=== PATIENT | male | born 1985 | race Hispanic/Latino ===

== ENCOUNTER 2018-02-13 09:05 | Inpatient (IN) | payer BC ==
[2018-02-13] MEDS ORDERED: NA CHLORIDE 0.9% 1,000 ML ONE (10:12)
[2018-02-13] MEDS ORDERED: METRONIDAZOLE 500mg IVPB 500 MG/100 ML BAG IV ONE (10:12)
[2018-02-13] MEDS ORDERED: ONDANSETRON 4 MG/2 ML VIAL ONE (10:12)
[2018-02-13] MEDS ORDERED: Levofloxacin 750mg IV 750 MG/150 ML BAG IV ONE (10:12)
[2018-02-13] MEDS ORDERED: MORPHINE 4 MG/ML SYR ONE (10:12)
[2018-02-13 10:42] LABS: Absolute Lymphocytes (CBC) 1.7 K/uL (0.7-4.9); Absolute Monocytes 1.6 K/uL (0.1-1.3); Absolute Neutrophil 10.9 K/uL (1.8-8.0); Basophils % 0.3 % (0-1.3); Eosinophils % 0.1 % (0-4.4); Hematocrit 40.8 % (39.6-49.0); Lymphocytes % 11.9 % (15.3-44.8); MPV 7.6 fL (7.6-11.3); Monocytes % 11.5 % (3.3-12.3); RBC Red Blood Cell Count 4.69 M/uL (4.33-5.43)
[2018-02-13 11:01] LABS: ALT/SGPT 83 U/L (12-78); AST/SGOT 33 U/L (15-37); Albumin 3.4 g/dL (3.4-5.0); Alkaline Phosphatase 117 U/L (45-117); BUN Blood Urea Nitrogen 9 mg/dL (7-18); Bicarbonate 32 mmol/L (21-32); Bilirubin Direct 0.2 mg/dL (0-0.2); Bilirubin Total 0.5 mg/dL (0.2-1.0); Glucose Level 116 mg/dL (74-106); Lipase 72 U/L (73-393); Potassium 3.4 mmol/L (3.5-5.1); Protein, Total 8.5 g/dL (6.4-8.2); Sodium Level 135 mmol/L (136-145)
[2018-02-13 11:13] LABS: Urine Blood 1+ (NEG); Urine Glucose NEGATIVE (NEG); Urine Protein 1+ (NEG); Urine Specific Gravity >1.030 (1.005-1.030); Urine pH 5.5 (5.0-7.0)
[2018-02-13] MEDS ORDERED: NS KCL 20MEQ 1,000 ML IV ONE (12:16)
--- NOTE | 2018-02-13 12:34 | EDPHYS ---
Physician Documentation [facility] Name: Jalen Venegas Age: 32 yrs Sex: Male : 1985 Arrival Date: 02/13/2018 Time: 09:08 Bed 14 Private MD: ED Physician Fabian Daugherty HPI: 02/13 09:47 This 32 yrs old Male presents to ER via Ambulatory with complaints of anthony Abdominal Pain. 09:47 The patient presents with abdominal pain in the lower abdomen, in the left lower anthony quadrant. Onset: The symptoms/episode began/occurred 7 day(s) ago. The symptoms do not radiate. Associated signs and symptoms: none. The symptoms are described as crampy, steady. Modifying factors: The symptoms are alleviated by nothing, the symptoms are aggravated by jumping, movement, touching the area, walking. Severity of pain: At its worst the pain was moderate in the emergency department the pain is unchanged. Historical: - Allergies: 09:22 No Known Allergies; aa5 - Home Meds: :22 None [Active]; aa5 - PMHx: 09:22 Diverticulitis; aa5 - PSHx: 09:22 None; aa5 - Immunization history:: Adult Immunizations unknown. - Social history:: Smoking status: Patient/guardian denies using tobacco. - Ebola Screening: : No symptoms or risks identified at this time. - Family history:: not pertinent. ROS: 09:47 Constitutional: Negative for fever, chills, and weight loss, Eyes: Negative for injury, anthony pain, redness, and discharge, ENT: Negative for injury, pain, and discharge, Neck: Negative for injury, pain, and swelling, Cardiovascular: Negative for chest pain, palpitations, and edema, Respiratory: Negative for shortness of breath, cough, wheezing, and pleuritic chest pain, Back: Negative for injury and pain, : Negative for injury, bleeding, discharge, and swelling, MS/Extremity: Negative for injury and deformity, Skin: Negative for injury, rash, and discoloration, Neuro: Negative for headache, weakness, numbness, tingling, and seizure, Psych: Negative for depression, anxiety, suicide ideation, homicidal ideation, and hallucinations, Allergy/Immunology: Negative for hives, rash, and allergies, Endocrine: Negative for neck swelling, polydipsia, polyuria, polyphagia, and marked weight changes, Hematologic/Lymphatic: Negative for swollen nodes, abnormal bleeding, and unusual bruising. 09:47 Abdomen/GI: Positive for abdominal pain, of the left upper quadrant, right lower quadrant and left lower quadrant. Exam: 09:47 Constitutional: This is a well developed, well nourished patient who is awake, alert, anthony and in no acute distress. Head/Face: Normocephalic, atraumatic. Eyes: Pupils equal round and reactive to light, extra-ocular motions intact. Lids and lashes normal. Conjunctiva and sclera are non-icteric and not injected. Cornea within normal limits. Periorbital areas with no swelling, redness, or edema. ENT: Nares patent. No nasal discharge, no septal abnormalities noted. Tympanic membranes are normal and external auditory canals are clear. Oropharynx with no redness, swelling, or masses, exudates, or evidence of obstruction, uvula midline. Mucous membranes moist. Neck: Trachea midline, no thyromegaly or masses palpated, and no cervical lymphadenopathy. Supple, full range of motion without nuchal rigidity, or vertebral point tenderness. No Meningismus. Chest/axilla: Normal chest wall appearance and motion. Nontender with no deformity. No lesions are appreciated. Cardiovascular: Regular rate and rhythm with a normal S1 and S2. No gallops, murmurs, or rubs. Normal PMI, no JVD. No pulse deficits. Respiratory: Lungs have equal breath sounds bilaterally, clear to auscultation and percussion. No rales, rhonchi or wheezes noted. No increased work of breathing, no retractions or nasal flaring. Back: No spinal tenderness. No costovertebral tenderness. Full range of motion. Male : Normal genitalia with no discharge or lesions. Skin: Warm, dry with normal turgor. Normal color with no rashes, no lesions, and no evidence of cellulitis. MS/ Extremity: Pulses equal, no cyanosis. Neurovascular intact. Full, normal range of motion. Neuro: Awake and alert, GCS 15, oriented to person, place, time, and situation. Cranial nerves II-XII grossly intact. Motor strength 5/5 in all extremities. Sensory grossly intact. Cerebellar exam normal. Normal gait. Psych: Awake, alert, with orientation to person, place and time. Behavior, mood, and affect are within normal limits. 09:47 Abdomen/GI: Inspection: distension, Bowel sounds: normal, Palpation: moderate abdominal tenderness, in the suprapubic area, left upper quadrant and left lower quadrant. Vital Signs: 09:22 BP 132 / 82; Pulse 93; Resp 18 S; Temp 99.8(O); Pulse Ox 97% on R/A; Weight 91.17 kg aa5 (R); Height 5 ft. 9 in. (175.26 cm) (R); Pain 7/10; 10:00 BP 131 / 90; Pulse 90; Resp 14; Pulse Ox 97% ; bp 12:00 BP 122 / 78; Pulse 88; Resp 14; Pulse Ox 95% ; bp 14:00 BP 124 / 79; Pulse 91; Resp 16; Pulse Ox 97% ; bp 09:22 Body Mass Index 29.68 (91.17 kg, 175.26 cm) aa5 MDM: 09:29 Patient medically screened. [facility] 09:50 Data reviewed: vital signs, nurses notes, lab test result(s), radiologic studies, CT anthony scan. 02/13 09:46 Order name: Basic Metabolic Panel; Complete Time: 11:26 [facility] 02/13 09:46 Order name: CBC with Diff; Complete Time: 10:53 [facility] 02/13 09:46 Order name: Creatinine for Radiology; Complete Time: 11:00 [facility] 02/13 09:46 Order name: Hepatic Function; Complete Time: 11:26 [facility] 02/13 09:46 Order name: Lipase; Complete Time: 11:26 [facility] 02/13 10:25 Order name: Urine Dipstick--Ancillary (enter results); Complete Time: 11:26 02/13 09:51 Order name: CT Abd/Pelvis - W/Contrast [facility] 02/13 09:46 Order name: IV Saline Lock; Complete Time: 10:23 [facility] 02/13 09:46 Order name: Labs collected and sent; Complete Time: 10:23 [facility] 02/13 09:46 Order name: Urine Dipstick-Ancillary (obtain specimen); Complete Time: 10:22 [facility] Administered Medications: 10:15 Drug: NS 0.9% 1000 ml Route: IV; Rate: 1 bolus; Site: right antecubital; bp 12:01 Follow up: IV Status: Completed infusion; IV Intake: 1000ml bp 10:15 Drug: morphine 4 mg Route: IVP; Site: right antecubital; bp 11:59 Follow up: Response: Pain is decreased bp 10:15 Drug: Zofran 4 mg Route: IVP; Site: right antecubital; bp 12:01 Follow up: Response: Nausea is decreased bp 10:15 Drug: Flagyl 500 mg Volume: 100 ml; Route: IVPB; Rate: 200 ml/hr; Infused Over: 30 bp mins; Site: right antecubital; 10:45 Follow up: IV Status: Completed infusion; IV Intake: 100ml bp 11:15 Drug: levofloxacin 750 mg Volume: 150 ml; Route: IVPB; Infused Over: 90 mins; Site: bp right forearm; 12:15 Follow up: IV Status: Completed infusion; IV Intake: 200ml bp 12:05 Drug: NS 0.9% with KCl 20 mEq/L 1000 ml Route: IV; Rate: 125 ml/hr; Site: right bp antecubital; 14:28 Follow up: IV Status: Infusion continued upon admission bp 13:00 Drug: Rocephin 2 grams Route: IV; Rate: per protocol; Site: right antecubital; bp 14:29 Follow up: IV Status: Completed infusion; IV Intake: 100ml bp Disposition: 18 12:34 Hospitalization ordered by Cooper Vaz for Inpatient Admission. Preliminary diagnosis are Abdominal tenderness, Diverticulitis of large intestine with perforation and abscess - no abscess seen, Elevated white blood cell count, Hypokalemia, Fever, unspecified. - Bed requested for Telemetry/MedSurg (Inpatient). - Status is Inpatient Admission. bp - Condition is Stable. - Problem is new. - Symptoms are unchanged. UTI on Admission? No Signatures: Dispatcher [employer] EDLA Fabian Daugherty MD MD cha Calderon, Audri RN RN aa5 Miranda Jose RN RN df Peltier, Brian, RN RN bp Corrections: (The following items were deleted from the chart) 12:34 12:34 Hospitalization Ordered by Cooper Vaz MD for Inpatient Admission. Preliminary anthony diagnosis is Abdominal tenderness; Diverticulitis of large intestine with perforation and abscess - no abscess seen; Elevated white blood cell count; Hypokalemia. Bed requested for Telemetry/MedSurg (Inpatient). Status is Inpatient Admission. Condition is Stable. Problem is new. Symptoms are unchanged. UTI on Admission? No. anthony 13:41 12:34 02/13/2018 12:34 Hospitalization Ordered by Cooper Vaz MD for Inpatient df Admission. Preliminary diagnosis is Abdominal tenderness; Diverticulitis of large intestine with perforation and abscess - no abscess seen; Elevated white blood cell count; Hypokalemia; Fever, unspecified. Bed requested for Telemetry/MedSurg (Inpatient). Status is Inpatient Admission. Condition is Stable. Problem is new. Symptoms are unchanged. UTI on Admission? No. anthony 15:12 13:41 02/13/2018 12:34 Hospitalization Ordered by Cooper Vaz MD for Inpatient bp Admission. Preliminary diagnosis is Abdominal tenderness; Diverticulitis of large intestine with perforation and abscess - no abscess seen; Elevated white blood cell count; Hypokalemia; Fever, unspecified. Bed requested for Telemetry/MedSurg (Inpatient). Status is Inpatient Admission. Condition is Stable. Problem is new. Symptoms are unchanged. UTI on Admission? No. df
--- NOTE | 2018-02-13 12:34 | ER ---
Nurse's Notes [facility] Name: Jalen Venegas Age: 32 yrs Sex: Male : 1985 Arrival Date: 02/13/2018 Time: 09:08 Bed 14 Private MD: Diagnosis: Abdominal tenderness;Diverticulitis of large intestine with perforation and abscess-no abscess seen;Elevated white blood cell count;Hypokalemia;Fever, unspecified Presentation: 02/13 09:20 Presenting complaint: Patient states: lower abd pain, nausea, and fever x 3-4 days ago. aa5 Pt states "I saw my doctor on and she sent me here for a CT scan and today she said that they saw a tear in my intestine". Pt states "I am still in pain". Transition of care: patient was not received from another setting of care. Onset of symptoms was January 2018. Risk Assessment: Do you want to hurt yourself or someone else? Patient reports no desire to harm self or others. Initial Sepsis Screen: Does the patient meet any 2 criteria? No. Patient's initial sepsis screen is negative. Does the patient have a suspected source of infection? No. Patient's initial sepsis screen is negative. Care prior to arrival: None. 09:20 Method Of Arrival: Ambulatory aa5 09:20 Acuity: JANET 3 aa5 Triage Assessment: 09:30 General: Appears in no apparent distress. uncomfortable, Behavior is calm, cooperative, bp appropriate for age. Pain: Complains of pain in abdomen. EENT: No deficits noted. Neuro: Level of Consciousness is awake, alert, obeys commands, Oriented to person, place, time, situation, Appropriate for age. Cardiovascular: No deficits noted. Respiratory: Airway is patent Respiratory effort is even, unlabored, Respiratory pattern is regular, symmetrical. GI: Abdomen is non-distended, Abd is soft X 4 quads Abdomen is tender to palpation DIFFUSELY. : No signs and/or symptoms were reported regarding the genitourinary system. Derm: No deficits noted. Musculoskeletal: Circulation, motion, and sensation intact. Range of motion: intact in all extremities. Historical: - Allergies: 09:22 No Known Allergies; aa5 - Home Meds: 09:22 None [Active]; aa5 - PMHx: :22 Diverticulitis; aa5 - PSHx: 09:22 None; aa5 - Immunization history:: Adult Immunizations unknown. - Social history:: Smoking status: Patient/guardian denies using tobacco. - Ebola Screening: : No symptoms or risks identified at this time. - Family history:: not pertinent. Screenin:11 Abuse screen: Denies threats or abuse. Denies injuries from another. Nutritional bp screening: No deficits noted. Tuberculosis screening: No symptoms or risk factors identified. Fall Risk None identified. Assessment: 09:30 General: SEE TRIAGE NOTE. GI: Bowel sounds present X 4 quads. bp 10:15 Reassessment: PT COMPLETED PO CONTRAST, CT NOTIFIED. bp Vital Signs: 09:22 BP 132 / 82; Pulse 93; Resp 18 S; Temp 99.8(O); Pulse Ox 97% on R/A; Weight 91.17 kg [facility] (R); Height 5 ft. 9 in. (175.26 cm) (R); Pain 7/10; 10:00 BP 131 / 90; Pulse 90; Resp 14; Pulse Ox 97% ; bp 12:00 BP 122 / 78; Pulse 88; Resp 14; Pulse Ox 95% ; bp 14:00 BP 124 / 79; Pulse 91; Resp 16; Pulse Ox 97% ; bp 09:22 Body Mass Index 29.68 (91.17 kg, 175.26 cm) [facility] ED Course: 09:08 Patient arrived in ED. mr 09:20 Arm band placed on. aa5 09:22 Triage completed. [facility] 09:29 Fabian Daugherty MD is Attending Physician. [facility] 09:40 Regan Campbell, EASTON is Primary Nurse. bp 10:11 Patient has correct armband on for positive identification. Bed in low position. Call bp light in reach. Side rails up X2. 10:15 Inserted saline lock: 18 gauge in right antecubital area, using aseptic technique. bp Blood collected. 10:27 Initial lab(s) drawn, by ms, sent to lab. Urine collected: clean catch specimen, clear. [facility] Inserted saline lock: 18 gauge in right antecubital area, using aseptic technique. Blood collected. 10:28 Basic Metabolic Panel Sent. [facility] 10:28 CBC with Diff Sent. [facility] 10:28 Creatinine for Radiology Sent. [facility] 10:28 Hepatic Function Sent. [facility] 10:29 Pulse ox on. NIBP on. mh5 10:29 Lipase Sent. mh5 12:19 CT Abd/Pelvis - W/Contrast In Process Unspecified. EDMS 12:30 Cooper Vaz MD is Hospitalizing Provider. anthony 14:27 No provider procedures requiring assistance completed. Patient admitted, IV remains in bp place. Administered Medications: 10:15 Drug: NS 0.9% 1000 ml Route: IV; Rate: 1 bolus; Site: right antecubital; bp 12:01 Follow up: IV Status: Completed infusion; IV Intake: 1000ml bp 10:15 Drug: morphine 4 mg Route: IVP; Site: right antecubital; bp 11:59 Follow up: Response: Pain is decreased bp 10:15 Drug: Zofran 4 mg Route: IVP; Site: right antecubital; bp 12:01 Follow up: Response: Nausea is decreased bp 10:15 Drug: Flagyl 500 mg Volume: 100 ml; Route: IVPB; Rate: 200 ml/hr; Infused Over: 30 bp mins; Site: right antecubital; 10:45 Follow up: IV Status: Completed infusion; IV Intake: 100ml bp 11:15 Drug: levofloxacin 750 mg Volume: 150 ml; Route: IVPB; Infused Over: 90 mins; Site: bp right forearm; 12:15 Follow up: IV Status: Completed infusion; IV Intake: 200ml bp 12:05 Drug: NS 0.9% with KCl 20 mEq/L 1000 ml Route: IV; Rate: 125 ml/hr; Site: right bp antecubital; 14:28 Follow up: IV Status: Infusion continued upon admission bp 13:00 Drug: Rocephin 2 grams Route: IV; Rate: per protocol; Site: right antecubital; bp 14:29 Follow up: IV Status: Completed infusion; IV Intake: 100ml bp Intake: 10:45 IV: 100ml; Total: 100ml. bp 12:01 IV: 1000ml; Total: 1100ml. bp 12:15 IV: 200ml; Total: 1300ml. bp 14:29 IV: 100ml; Total: 1400ml. bp Outcome: 12:34 Decision to Hospitalize by Provider. anthony 14:34 Admitted to Med/surg accompanied by tech, family with patient, via wheelchair, room bp 415, with chart, Report called to NELLIE MCCORMACK 14:34 Condition: stable 14:34 Instructed on the need for admit. 15:12 Patient left the ED. bp Signatures: Dispatcher [employer] EDFabian Carrasquillo MD MD cha Rivera, Mary mr Calderon, Audri, RN RN [id number] Hina Stewart Regan Payton RN RN bp
--- NOTE | 2018-02-13 12:35 | RAD REPORT ---
EXAM DESCRIPTION: CT - Abdomen Pelvis W Contrast - 02/13/2018 12:19 pm CLINICAL HISTORY: Abdominal pain, nausea, fever COMPARISON: CT study February 09 TECHNIQUE: Biphasic, helical CT imaging of the abdomen and pelvis was performed following 100 ml non -ionic IV contrast. Oral contrast was given. All CT scans are performed using dose optimization technique as appropriate and may include automated exposure control or mA/KV adjustment according to patient size. FINDINGS: No suspicious findings in the lung bases. The liver, spleen, pancreas, gallbladder and biliary tree show no new finding since February 09. No n ew renal finding. No new bladder finding. No gastric abnormality. No new small bowel finding. Colon from cecum to the splenic flexure remains n ormal. Previously detailed locally contained perforated diverticulitis in the mid sigmoid colon is still pre sent. The air and stranding of the mesenteric border has increased since the . No prior study this was an approximately 3.5 centimeter area of air in stranding. The area involved is now approximately 6 cm in maximum dimension. There is no walled off or drainable collection of fluid present. All free air remains contained adjacent to the mesenteric margin of the involved colon. There is some thicken ing and stranding along the anterior pararenal fascia and left pericolic gutter fascia similar to the comparison. No distant free air or free fluid. No hernia, mass or bulky lymphadenopathy. No suspicious bony findings. IMPRESSION: The previously detailed area of contained perforated acute diverticulitis at the mid harrison cending colon has enlarged. There is more air, stranding and some free fluid along the mesenteric mar gin. No abscess or drainable fluid collection at the site of perforation. No distant free air or free flui d. The extraluminal air remains contained along the mesenteric margin. The oral contrast column from today's study has not reached this portion of the descending colon.
[2018-02-13] MEDS ORDERED: NA CHLORIDE 0.9% 100 ML IV ONE (14:08)
[2018-02-13] MEDS ORDERED: CEFTRIAXONE 1000 MG/VIAL ONE (14:08)
--- NOTE | 2018-02-13 14:11 | P.HP ---
Certification for Inpatient Patient admitted to: Inpatient With expected LOS: >2 Midnights Practitioner: I am a practitioner with admitting privileges, knowledge of patient current condition, hospital course, and medical plan of care. Services: Services provided to patient in accordance with Admission requirements found in Title 42 Section 412.3 of the Code of Federal Regulations Patient History Date of Service: 02/13/18 Reason for admission: Perforated diverticulitis History of Present Illness: Patient is a 32-year-old male with no significant past medical history comes in with acute abdominal pain for the past 6 days. Patient's pain is located in the left lower quadrant and it is nonradiating. Patient describes pain as dull constant. No alleviating or aggravating factors. Patient did spike a fever of 101. No significant episodes of vomiting however does have nausea. Patient has not eaten today. Patient's symptoms are constant moderate progressively worsening Patient was seen by doctor Isaias on and was started on Cipro and was given pain medications. CT scan was done. Patient's pain has progressed since then and today was called with his results and told to come to the ER for further evaluation due to perforated diverticulitis. In the ER the patient's workup revealed worsening perforated diverticulitis now [address] abdomen. Patient is given IV fluid bolus IV antibiotics and referred for admission. When seen in the ER the patient was awake alert oriented x3 in some mild distress. Home medications list reviewed: Yes - Past Medical/Surgical History Diabetic: No Past Medical History: Patient denies medical history Past Surgical History: Patient denies surgical history Psychosocial/ Personal History: Patient is . works at [employer] - Family History Father -: Diabetes Notes: Diverticulitis runs in multiple members of the family including grandparents parent and cousin - Social History Smoking Status: Never smoker Alcohol use: Yes Place of Residence: Home Review of Systems 10-point ROS is otherwise unremarkable General: Fever Gastrointestinal: As per HPI Physical Examination - Vital Signs Temperature: 99.8 F Blood Pressure: 132/82 Pulse: 93 Respirations: 18 Pulse Ox (%): 97 - Physical Exam General: Alert, Oriented x3, Acute distress, Moderate distress HEENT: Atraumatic, PERRLA, Mucous membr. moist/pink, EOMI, Sclerae nonicteric Neck: Supple, 2+ carotid pulse no bruit Respiratory: Clear to auscultation bilaterally, Normal air movement Cardiovascular: No edema, Normal pulses, Regular rate/rhythm, Normal S1 S2 Gastrointestinal: Hypoactive, No rebound, Rigidity, Distended, Tenderness, Guarding Musculoskeletal: No clubbing, No erythema, No tenderness Integumentary: No rashes, No erythema Neurological: Normal gait, Normal speech, Normal strength at 5/5 x4 extr, Normal tone, Cranial nerves 3-12 intact, Normal affect - Studies Laboratory Data (last 24 hrs) 02/13/18 10:10: Creatinine 0.90 02/13/18 10:10: WBC 14.3 H, Hgb 14.1, Hct 40.8, Plt Count 304 02/13/18 10:10: Sodium 135 L, Potassium 3.4 L, BUN 9, Creatinine 0.90, Glucose 116 H, Total Bilirubin 0.5, AST 33, ALT 83 H, Alkaline Phosphatase 117, Lipase 72 L Imagings Data: CT abdomen pelvis : The previously detailed area of contained perforated acute diverticulitis at the mid descending colon has enlarged. There is more air, stranding and some free fluid along the mesenteric margin. No abscess or drainable fluid collection at the site of perforation. No distant free air or free fluid. The extraluminal air remains contained along the mesenteric margin. The oral contrast column from today's study has not reached this portion of the descending colon. Assessment and Plan - Problems (Diagnosis) (1) Acute diverticulitis Current Visit: Yes Status: Acute (2) Hypokalemia Current Visit: Yes Status: Acute - Plan Start on IV antibiotics with Zosyn Surgery consultation. Spoke with Dr. Santillan Patient has signs of peritonitis will likely need to go to the OR Replace potassium IV fluids NPO SCDs. No chemical anticoagulation due to possible surgical intervention IV PPI Discharge Plan: Home Plan to discharge in: 72 Hours - Advance Directives Does patient have a Living Will: No Does patient have a Durable POA for Healthcare: No - Code Status/Comfort Care Code Status Assessed: Yes
[2018-02-13] MEDS ORDERED: SODIUM CHLORIDE 0.9% 10ML INJ IV PRN (15:51)
[2018-02-13] MEDS ORDERED: ONDANSETRON 4 MG/2 ML VIAL IV PRN (15:51)
[2018-02-13] MEDS ORDERED: PIPER/TAZO/NS 3.375gm 3.375 GM/100 ML BAG IVPB SCH (17:00)
[2018-02-13] MEDS: D5 0.45 NS 1,000 ML IV SCH ×2 (18:28→23:15)
[2018-02-13] MEDS: METRONIDAZOLE 500mg IVPB 500 MG/100 ML BAG IV SCH ×2 (18:29→23:15)
[2018-02-13] MEDS: PIPER/TAZO/NS 3.375gm 3.375 GM/100 ML BAG IVPB SCH (18:29)
[2018-02-13] MEDS: MORPHINE 2 MG/ML SYR IV PRN (18:44)
[2018-02-13] MEDS ORDERED: INFLUENZA VACCINE (for 3y+) 0.5 ML DOSE IMVAC ONE (20:00)
--- NOTE | 2018-02-13 21:57 | CON ---
Date of Consultation: 02/13/2018 Reason For Consultation: Left lower quadrant abdominal pain. History Of Present Illness: The patient is a 32-year-old gentleman with known history of diverticulo sis, who about 6 days ago started having left lower quadrant abdominal pain; and after 2 days, when i t did not get better, he went to Dr. Esparza's office. His PA ordered a CAT scan, which showed contai michael perforated sigmoid diverticulitis, and he was started on oral antibiotics. However, the pain was not getting better. He was having low-grade fevers. He came to the emergency room. CT scan was re peated, and this perforation has gotten a little bit bigger, and he was admitted for IV antibiotics, and I was consulted. He is awake and alert. He states that there is no nausea or vomiting. No diar halina or constipation. No blood in his stool. He did have a colonoscopy in 2016, which showed divert iculosis. No sore throat, runny nose, cough, headaches, or dizziness. No chest pain. Low-grade fev er and chills. Family History: Family history in this regard is significant for a paternal uncle with colon cancer. Review of Systems: Otherwise unremarkable. Past Medical History: Negative. Past Surgical History: Negative. Allergies: NO ALLERGIES. Social History: The patient does not smoke. Drinks occasionally. Family History: Significant for a paternal uncle with colon cancer. Review of Systems: Otherwise unremarkable. Physical Examination: Vital Signs: Stable. His temperature is 99.8. General: He is awake, alert, and oriented x3. Head and neck: Cranial nerves 2 through 12 are grossly within normal limits. No neck masses. No JV D. Throat clear. Neck is supple. Chest: Clear. Heart: S1, S2. Abdomen: Soft, nondistended. Positive bowel sounds. Positive left lower quadrant tenderness with r ebound. Mild rigidity. No significant involuntary guarding. There is some voluntary guarding. Extremities: Adequately perfused. Nontender. Neurologic: Nonfocal. Laboratory Data: Significant for white count of 14.3 with a left shift. Chemistry shows a potassium of 3.4, glucose of 116. ALT is slightly elevated. Remainder of the LFTs and labs are okay. CT of the abdomen and pelvis reviewed with Dr. Irving. This shows previously detailed area contained perf orated acute diverticulitis at the mid descending colon, has slightly enlarged. There is more air. There is some stranding. There is some free fluid along the mesenteric margin. No abscess or draina ble fluid collection at the site of perforation. No distant free air or free fluid. Extra-luminal a ir remains contained along the mesenteric margin. However, the oral contrast on today's study does n ot really support obstruction of the descending colon. The CAT scan that was done previously had con trast, and there was no evidence of any active it perforation at that time. Assessment: Acute sigmoid diverticulitis with perforation, contained. Recommendation: The patient needs to be on IV antibiotics and IV fluids. N.p.o. at this time. Seri al abdominal exam. Should he not improve with conservative medical treatment, he will need surgical intervention, which may require a Debo procedure. Should he improve, then he needs a colonoscopy in 4 to 6 weeks, followed by a segmental colon resection. Plan of care was discussed in detail with the patient's family as well as Dr. Vaz. Please note, I have changed the dosing of the Zosyn to q.6 hours and added Flagyl, and we will follow this patient riyal trevor GARCIA/AYALA Voice ID: [id number] Report ID: [id number]
[2018-02-14] MEDS: PIPER/TAZO/NS 3.375gm 3.375 GM/100 ML BAG IVPB SCH ×4 (00:37→23:22)
[2018-02-14] MEDS: MORPHINE 2 MG/ML SYR IV PRN (05:10)
[2018-02-14] MEDS: METRONIDAZOLE 500mg IVPB 500 MG/100 ML BAG IV SCH ×4 (05:10→23:18)
[2018-02-14 07:19] LABS: Absolute Monocytes 1.3 K/uL (0.1-1.3); Absolute Neutrophil 7.4 K/uL (1.8-8.0); Basophils % 0.4 % (0-1.3); Eosinophils % 0.1 % (0-4.4); Hematocrit 37.4 % (39.6-49.0); Lymphocytes % 10.7 % (15.3-44.8); MPV 7.5 fL (7.6-11.3); Monocytes % 13.5 % (3.3-12.3); RBC Red Blood Cell Count 4.32 M/uL (4.33-5.43)
[2018-02-14 07:38] LABS: BUN Blood Urea Nitrogen 11 mg/dL (7-18); Bicarbonate 28 mmol/L (21-32); Glucose Level 125 mg/dL (74-106); Sodium Level 135 mmol/L (136-145)
[2018-02-14] MEDS: D5 0.45 NS 1,000 ML IV SCH ×3 (07:51→21:14)
[2018-02-14] MEDS: PANTOPRAZOLE 40 MG INJ IVP SCH (09:44)
[2018-02-14] MEDS: ACETAMINOPHEN 500 MG TAB PO PRN ×2 (12:19→21:13)
--- NOTE | 2018-02-14 15:03 | P.PN ---
Subjective Date of Service: 02/14/18 Chief Complaint: Perforated diverticulitis Subjective: No new changes, No C/O voiced, Improving Patient seen and examined at bedside. No family at bedside. Chart reviewed and case discussed with nursing staff. Afebrile overnight Review of Systems As noted Physical Examination - Vital Signs Temperature: 97.9 F Blood Pressure: 125/74 Pulse: 87 Respirations: 18 Pulse Ox (%): 96 - Physical Exam General: Alert, In no apparent distress, Oriented x3 HEENT: Atraumatic, PERRLA, EOMI Neck: Supple, JVD not distended Respiratory: Clear to auscultation bilaterally, Normal air movement Cardiovascular: Regular rate/rhythm, Normal S1 S2 Gastrointestinal: Normal bowel sounds, Tenderness (Mild) Musculoskeletal: No tenderness Integumentary: No rashes Neurological: Normal speech, Normal tone, Normal affect Lymphatics: No axilla or inguinal lymphadenopathy Assessment And Plan - Plan This is a 31-year-old male with: Acute diverticulitis Continue IV antibiotics with Zosyn and Flagyl. Surgery consulted, recommendations appreciated. Continue with conservative management at this time as patient is improving clinically. Will start on clear liquid diet, advance as tolerated. Will discontinue IV fluids once patient tolerating at least a clear liquid diet. Hypokalemia Resolved DVT prophylaxis: SCDs, encourage ambulation GI prophylaxis: None Diet: Clear liquid diet, advance as tolerated Disposition: Pending symptomatic improvement. Will continue with conservative management at this time. Discharge once patient able to tolerate full liquid/ soft diet. Time Spent Managing PTS Care (In Minutes): 35
--- NOTE | 2018-02-14 15:28 | PN ---
Date of Progress Note: 02/14/2018 Subjective: Patient is awake and alert. No pain. Objective: Vital Signs: Stable. Afebrile. Abdomen: Completely benign. Laboratory Data: White count is normal. There is no left shift. Assessment: Acute sigmoid diverticulitis and descending colon diverticulitis with contained microper foration. Recommendations: Continue IV antibiotics. We will start patient on sips of clear liquids. The pamela ent needs at least a couple of more days of IV antibiotics following which he will be discharged on o ral antibiotics and then follow up with GI for a colonoscopy and then patient will need a segmental r esection of the descending colon. Plan of care discussed in detail with the patient and . /MODL Voice ID: [id number] Report ID: [id number]
[2018-02-15] MEDS: METRONIDAZOLE 500mg IVPB 500 MG/100 ML BAG IV SCH ×4 (05:51→23:49)
[2018-02-15] MEDS: PIPER/TAZO/NS 3.375gm 3.375 GM/100 ML BAG IVPB SCH ×4 (05:52→23:49)
[2018-02-15] MEDS: D5 0.45 NS 1,000 ML IV SCH ×4 (05:53→23:50)
[2018-02-15 06:00] LABS: Absolute Lymphocytes (CBC) 0.9 K/uL (0.7-4.9); Absolute Monocytes 1.2 K/uL (0.1-1.3); Absolute Neutrophil 4.4 K/uL (1.8-8.0); Basophils % 0.7 % (0-1.3); Eosinophils % 0.4 % (0-4.4); Hematocrit 38.3 % (39.6-49.0); Lymphocytes % 13.9 % (15.3-44.8); MPV 7.5 fL (7.6-11.3); Monocytes % 18.5 % (3.3-12.3); RBC Red Blood Cell Count 4.47 M/uL (4.33-5.43)
[2018-02-15 06:20] LABS: BUN Blood Urea Nitrogen 8 mg/dL (7-18); Bicarbonate 27 mmol/L (21-32); Glucose Level 127 mg/dL (74-106); Potassium 3.5 mmol/L (3.5-5.1); Sodium Level 136 mmol/L (136-145)
[2018-02-15] MEDS ORDERED: POTASSIUM CL SA 10 MEQ TAB PO ONE (06:23)
[2018-02-15] MEDS: PANTOPRAZOLE 40 MG INJ IVP SCH (09:00)
--- NOTE | 2018-02-15 13:13 | P.PN ---
Subjective Date of Service: 02/15/18 Chief Complaint: Perforated diverticulitis Subjective: No new changes, No C/O voiced, Improving Patient seen and examined at bedside. at bedside. Chart reviewed and case discussed with nursing staff. Afebrile overnight Review of Systems As noted Physical Examination - Vital Signs Temperature: 98.6 F Blood Pressure: 118/64 Pulse: 75 Respirations: 18 Pulse Ox (%): 98 - Physical Exam General: Alert, In no apparent distress, Oriented x3 HEENT: Atraumatic, PERRLA, EOMI Neck: Supple, JVD not distended Respiratory: Clear to auscultation bilaterally, Normal air movement Cardiovascular: Regular rate/rhythm, Normal S1 S2 Gastrointestinal: Normal bowel sounds, No tenderness Musculoskeletal: No tenderness Integumentary: No rashes Neurological: Normal speech, Normal tone, Normal affect Lymphatics: No axilla or inguinal lymphadenopathy Assessment And Plan - Plan This is a 31-year-old male with: Acute diverticulitis Continue IV antibiotics with Zosyn and Flagyl. Surgery consulted, recommendations appreciated. Continue with conservative management at this time as patient is improving clinically. Will start on clear liquid diet, advance as tolerated. Will discontinue IV fluids once patient tolerating at least a clear liquid diet. Hypokalemia Resolved DVT prophylaxis: SCDs, encourage ambulation GI prophylaxis: None Diet: Clear liquid diet, advance as tolerated Disposition: Pending symptomatic improvement. Will continue with conservative management at this time. Physician Review: Patient Assessed, Agree with Above Assessment and Plan Time Spent Managing PTS Care (In Minutes): 45
--- NOTE | 2018-02-15 19:46 | PN ---
Date of Progress Note: 02/15/2018 Subjective: The patient is awake, alert. No complaint. No pain. Tolerating clear liquids. Objective: Vital signs: Stable. Afebrile. Abdomen: Soft, nondistended, nontender. Positive bowel sounds. Laboratory Data: White count is normal. There is no left shift. Assessment: Acute descending colon diverticulitis with contained perforation. Recommendations: Continue IV antibiotics. We will advance his diet to full liquids tomorrow. We ca n start him on GI soft or low-fiber diet, following which he can be discharged home on oral antibioti cs. We will follow up with Dr. Esparza and colorectal surgeon in [place]. /MODL Voice ID: [id number] Report ID: [id number]
[2018-02-15] MEDS: ACETAMINOPHEN 500 MG TAB PO PRN (20:57)
[2018-02-16 04:29] LABS: Absolute Lymphocytes (CBC) 1.5 K/uL (0.7-4.9); Absolute Monocytes 1.1 K/uL (0.1-1.3); Absolute Neutrophil 3.2 K/uL (1.8-8.0); Basophils % 0.8 % (0-1.3); Eosinophils % 1.3 % (0-4.4); Hematocrit 39.2 % (39.6-49.0); Lymphocytes % 25.4 % (15.3-44.8); MPV 7.4 fL (7.6-11.3); RBC Red Blood Cell Count 4.54 M/uL (4.33-5.43)
[2018-02-16 04:50] LABS: Potassium 4.3 mmol/L (3.5-5.1)
[2018-02-16 05:14] LABS: Blood Morphology Comment NOT SEEN (NOT SEEN); Platelet Estimate ADEQ; Urine White Blood Cell Casts OK
[2018-02-16] MEDS: METRONIDAZOLE 500mg IVPB 500 MG/100 ML BAG IV SCH (06:00)
[2018-02-16] MEDS: PIPER/TAZO/NS 3.375gm 3.375 GM/100 ML BAG IVPB SCH (06:00)
[2018-02-16] MEDS: PANTOPRAZOLE 40 MG INJ IVP SCH (09:15)
--- NOTE | 2018-02-16 14:14 | PN ---
Date of Progress Note: 02/16/2018 Subjective: The patient is awake and alert. No complaints. Vital signs stable. Afebrile. White c ount normal. Abdomen benign. Assessment: Acute descending colon diverticulitis with contained perforation. Recommendations: The patient is cleared from Surgery to be discharged home on oral antibiotics. Fol low up with GI for colonoscopy in 4 to 6 weeks and then colorectal surgeon in [place]. /MODL Voice ID: [id number] Report ID: [id number]
--- NOTE | 2018-02-16 14:42 | P.DS ---
Admission Date: 02/13/18 Discharge Date: 02/16/18 Disposition: ROUTINE DISCHARGE Discharge Condition: GOOD Reason for Admission: Perforated diverticulitis Consultations: General surgery, Dr. Santillan Procedures: CT - Abdomen Pelvis W Contrast - 02/13/2018 12:19 pm CLINICAL HISTORY: Abdominal pain, nausea, fever COMPARISON: CT study February 09 TECHNIQUE: Biphasic, helical CT imaging of the abdomen and pelvis was performed following 100 ml non-ionic IV contrast. Oral contrast was given. All CT scans are performed using dose optimization technique as appropriate and may include automated exposure control or mA/KV adjustment according to patient size. FINDINGS: No suspicious findings in the lung bases. The liver, spleen, pancreas, gallbladder and biliary tree show no new finding since February 09. No new renal finding. No new bladder finding. No gastric abnormality. No new small bowel finding. Colon from cecum to the splenic flexure remains normal. Previously detailed locally contained perforated diverticulitis in the mid sigmoid colon is still present. The air and stranding of the mesenteric border has increased since the . No prior study this was an approximately 3.5 centimeter area of air in stranding. The area involved is now approximately 6 cm in maximum dimension. There is no walled off or drainable collection of fluid present. All free air remains contained adjacent to the mesenteric margin of the involved colon. There is some thickening and stranding along the anterior pararenal fascia and left pericolic gutter fascia similar to the comparison. No distant free air or free fluid. No hernia, mass or bulky lymphadenopathy. No suspicious bony findings. IMPRESSION: The previously detailed area of contained perforated acute diverticulitis at the mid descending colon has enlarged. There is more air, stranding and some free fluid along the mesenteric margin. No abscess or drainable fluid collection at the site of perforation. No distant free air or free fluid. The extraluminal air remains contained along the mesenteric margin. The oral contrast column from today's study has not reached this portion of the descending colon. Brief History of Present Illness: Patient is a 32-year-old male with no significant past medical history comes in with acute abdominal pain for the past 6 days. Patient's pain is located in the left lower quadrant and it is nonradiating. Patient describes pain as dull constant. No alleviating or aggravating factors. Patient did spike a fever of 101. No significant episodes of vomiting however does have nausea. Patient has not eaten today. Patient's symptoms are constant moderate progressively worsening Patient was seen by doctor Isaias on and was started on Cipro and was given pain medications. CT scan was done. Patient's pain has progressed since then and today was called with his results and told to come to the ER for further evaluation due to perforated diverticulitis. In the ER the patient's workup revealed worsening perforated diverticulitis now [address] abdomen. Patient is given IV fluid bolus IV antibiotics and referred for admission. When seen in the ER the patient was awake alert oriented x3 in some mild distress Hospital Course: This is a 31-year-old male admitted for acute diverticulitis. He was started on IV antibiotics with Zosyn and Flagyl. IV fluids were started, surgery was consulted. Recommended no surgical intervention at this time. Will continue to monitor patient with conservative management, and he continued to improve clinically. He was then started on a clear liquid diet, advance as tolerated 2 GI soft. He did well throughout the hospitalization, remained hemodynamically stable and had no complications. Prior to discharge, patient was tolerating a GI soft diet, abdominal pain had resolved and he was denying any symptoms. He was discharged on oral ciprofloxacin and Flagyl to complete a course of 14 days. He was discharged with instructions to follow with Dr. engle, gastroenterology in 2 weeks for outpatient colonoscopy in approximately 4-6 weeks. He was also instructed to follow up with a colorectal surgeon in [place] after the colonoscopy. Symptoms/diagnoses were explained to patient, all questions were answered and patient verbalized understanding. He was discharged in stable and stable manner. Vital Signs/Physical Exam: Temp Pulse Resp BP Pulse Ox 97.8 F 67 22 H 122/76 97 02/16/18 08:00 02/16/18 08:00 02/16/18 08:00 02/16/18 08:00 02/16/18 08:00 General: Alert, In no apparent distress, Oriented x3 HEENT: Atraumatic, PERRLA, EOMI Neck: Supple, JVD not distended Respiratory: Clear to auscultation bilaterally, Normal air movement Cardiovascular: Regular rate/rhythm, Normal S1 S2 Gastrointestinal: Normal bowel sounds, No tenderness Musculoskeletal: No tenderness Integumentary: No rashes Neurological: Normal speech, Normal tone, Normal affect Lymphatics: No axilla or inguinal lymphadenopathy Laboratory Data at Discharge: WBC 5.9 K/uL (4.3-10.9) 02/16/18 03:55 Hgb 13.6 g/dL (13.6-17.9) 02/16/18 03:55 Hct 39.2 % (39.6-49.0) L 02/16/18 03:55 Plt Count 309 K/uL (152-406) 02/16/18 03:55 Sodium 139 mmol/L (136-145) 02/16/18 03:55 Potassium 4.3 mmol/L (3.5-5.1) 02/16/18 03:55 BUN 8 mg/dL (7-18) 02/16/18 03:55 Creatinine 1.00 mg/dL (0.55-1.3) 02/16/18 03:55 Glucose 110 mg/dL (74-106) H 02/16/18 03:55 Total Bilirubin 0.5 mg/dL (0.2-1.0) 02/13/18 10:10 AST 33 U/L (15-37) 02/13/18 10:10 ALT 83 U/L (12-78) H 02/13/18 10:10 Alkaline Phosphatase 117 U/L (45-117) 02/13/18 10:10 Lipase 72 U/L (73-393) L 02/13/18 10:10 Home Medications: traMADol HCL [Ultram*] 1 - 2 tab PO SEECOM PRN 02/13/18 Ciprofloxacin HCl [Cipro 500 MG Tablet] 500 mg PO BID #28 tab 02/16/18 metroNIDAZOLE [Flagyl] 500 mg PO Q6H #56 tablet 02/16/18 New Medications: Ciprofloxacin HCl [Cipro 500 MG Tablet] 500 mg PO BID #28 tab metroNIDAZOLE [Flagyl] 500 mg PO Q6H #56 tablet Patient Discharge Instructions: Please follow up with GI doctor in 1-2 weeks - Information for Dr. Esparza provided to you. Please follow up with your primary care physician in 1 week. Return to the ER for worsening symptoms. Diet: GI soft, as tolerated Activity: No lifting more than 10 lbs Followup: Royal Esparza MD [ASSOCIATE-ACTIVE - CAN ADMIT] - Althea Dawson MD [ACTIVE - CAN ADMIT] - Physician Review: Patient Assessed, Agree with Above Assessment and Plan Time spent managing pt's care (in minutes): 55
== END 2018-02-16 11:52 | disposition home or self-care (01) | DRG 392 ==
LOC: ER 09:05 → ERHOLD 13:15 → 4TH 14:36
PROVIDERS: ADMIT Family Medicine; ATTEND Family Medicine
DX: K57.20 Diverticulitis of large intestine with perforation and abscess without bleeding (principal); E87.6 Hypokalemia; R50.9 Fever, unspecified
CPT/HCPCS: 36415; 74177; 80048; 80076; 81003; 83690; 85025; 87045; 87046; 94760; 99285; C9113; J2270; J2405; J2543; J7030; Q9967